=== PATIENT | male | born 1980 | race Two or more races ===

== ENCOUNTER → 2024-01-14 07:56 | Outpatient (REF) | payer OTHER, SELFPAY | LOC: HWRAD 07:56 | PROVIDERS: ATTENDING PHYSICIAN Physician Assistant Medical | DX: R10.13 Epigastric pain (principal) | CPT/HCPCS: 76700 ==

== ENCOUNTER 2024-02-17 06:30 | Day surgery (SDC) | payer OTHER, SELFPAY ==
[2024-02-17] VITALS (9 sets, daily range): BP systolic 115–151; BP diastolic 67–91; BMI 27.0
[2024-02-17] MEDS: NORMOSOL-R 1000 IV (09:49)
[2024-02-17] MEDS: TYLENOL 1000 MG PO (09:50)
--- NOTE | 2024-02-17 12:37 | W.SUR.PREOP ---
Pre-Operative Surgical Note
-
I have examined this patient prior to the performance of the scheduled procedure.
The patient's condition is unchanged from the time of the current History and
Physical and the patient is able to undergo the scheduled procedure.
--- NOTE | 2024-02-17 12:37 | W.IMMPOSTOP ---
Surgical Immed Post Op Note
-
Primary Surgeon: Channing Liao MD
Assisting Surgeon: None
Pre-op Diagnosis: Biliary colic
Post-op Diagnosis: Biliary colic, umbilical hernia
Procedure Performed:
1. Laparoscopic cholecystectomy with cholangiogram
Anesthesia Type: General
Specimen / Cultures: Gallbladder and contents
Estimated Blood Loss: 7 cc
Complications: None
Operative Findings: Small 1 cm umbilical hernia, reduced and uses our 12 mm port site. Fairly elongated gallbladder with palpable large stones. A critical view of safety was obtained. A large posterior cystic artery coming off of the right
hepatic was identified and taken flush with the right hepatic which was preserved. There was some bleeding from a small branch in this area which was controlled with a 0 PDS Endoloop. Fairly diminutive anterior cystic artery was identified as well
which was clipped with a 5 mm clip rn renal. Cholangiogram was performed which confirmed her anatomy and free flow of contrast into the duodenum without filling defects. Umbilical defect had to be enlarged to facilitate removal of the gallbladder
due to the large stone.
--- NOTE | 2024-02-17 12:40 | OR.RPT ---
Operative Report
Operative Report
Patient Name: Gareth Rodriguez
: 1980
Date of Operation: 02/17/2024
Preoperative Diagnosis: Symptomatic Cholelithiasis
Postoperative Diagnosis: Symptomatic cholelithiasis, umbilical hernia
Procedure(s):
Laparoscopic Cholecystectomy with Cholangiogram
Surgeon(s):
Dr. Liao
Front Office Help(s):
SUMA Sanchez
Anesthesia: General
Estimated Blood Loss: 7 cc
Urine Output: None
Drains/Lines/Implants: None
Specimens:
1. Gallbladder and contents
HPI/Surgical Indications:
This is a 44-year-old male who presents with abdominal pain. Exam, labs and imaging are consistent with symptomatic cholelithiasis. Risks/Benefits/Alternatives were discussed at length, and the patient agreed to proceed with surgery.
Operative Findings: Small 1 cm umbilical hernia, reduced and uses our 12 mm port site. Fairly elongated gallbladder with palpable large stones. Some adhesions noted to the anterior surface which were taken down with electrocautery. A critical
view of safety was obtained. A large posterior cystic artery coming off of the right hepatic was identified and taken flush with the right hepatic which was preserved. There was some bleeding from a small branch in this area which was controlled
with a 0 PDS Endoloop. Fairly diminutive anterior cystic artery was identified as well which was clipped with a 5 mm clip explosives mixer operator. Cholangiogram was performed which confirmed her anatomy and free flow of contrast into the duodenum without filling
defects. Umbilical defect had to be enlarged to facilitate removal of the gallbladder due to the large stone.
Procedure Description:
The patient was brought to the Operating Room and placed in the supine position. IV antibiotics were infused and sequential compression devices were confirmed to be on. Following uneventful induction of general endotracheal anesthesia, an
orogastric tube was placed. The abdomen was prepped and draped in the usual sterile fashion. The abdomen was entered using an infraumbilical open Justin technique. We did encounter a small umbilical hernia which we used to gain access to the
abdomen. Pneumoperitoneum to 15 mmHg pressure was obtained without difficulty and we confirmed that no injury had occurred during our entry. The patient was positioned in reverse trendelenberg and rotated with the right side up slightly. Three (3)
5mm trocars were then placed along the right subcostal margin. A locking grasping forceps was placed on the fundus of the gallbladder where it was then retracted cephalad and to the right. There were some adhesions to the anterior surface of the
gallbladder which were lysed with electrocautery. In addition segment 3 of the liver was fairly enlarged and covered up our critical area of dissection which were required additional time to manipulate each instrument exchange safely through our
right hand/epigastric port. Using appropriate grasping instruments, the peritoneum overlying the triangle of Calot was incised. The cystic duct/gallbladder junction was identified, dissected circumferentially. A large posterior cystic artery was
identified medially and posteriorly and could be seen joining the right hepatic artery. This was dissected out and isolated. We continued our dissection superiorly exposing the lower one third of the cystic plate and then inferiorly to better
delineate the strong structures in the triangle of Calot. A diminutive anterior cystic artery was identified and ligated with two 5 mm titanium clips. The cystic duct was also identified and ligated proximally with a single 5 mm titanium clip. The
posterior cystic artery was ligated with two 5 mm titanium clips proximally and 1 distally. The artery was divided but noted to have some small bleeding vessel that was not fully controlled with a clip. This was reinforced with a 0 PDS Endoloop
taking care not to kink or alter the main right hepatic artery. We then performed an intraoperative cholangiogram performed using fluoroscopy, which showed good flow of dye into the duodenum. There were no intra- or extrahepatic bile duct filling
defects. The biliary anatomy appeared normal. Following completion of the cholangiogram, the catheter was removed. Two clips were then placed proximally on the cystic duct and the duct divided. The remaining soft tissue attachments of the
gallbladder to the liver bed were then divided using electrocautery. There was no spillage of bile or stones. The gallbladder bed was inspected and excellent hemostasis was obtained. The gallbladder was extracted through the 12 mm trocar site
using an endocatch bag. The site had to be enlarged slightly to accommodate removal of the gallbladder. The abdomen was again irrigated and excellent hemostasis was assured. All remaining trocars were then removed and the pneumoperitoneum was
evacuated. The 12 mm trocar site was closed using a figure of 8 of 0 PDS. All trocar sites were closed at the skin level using 4-0 Monocryl followed by Dermabond. Overall, the patient tolerated the procedure well and was taken to the Recovery
Room postoperatively in stable condition.
I was the attending physician and performed the procedure with assistance from the PA student above. I was present for all portions of the case
Channing Liao MD
[2024-02-17] MEDS: SUBLIMAZE 50 MCG IV (13:08)
--- NOTE | 2024-02-17 13:50 | PTCARENOTE ---
1345- report given to Mary SPICER, pt. transferred to [facility]
[2024-02-17] MEDS: ROXICODONE 5 MG PO (14:18)
== END 2024-02-17 14:39 | disposition home or self-care (01) ==
LOC: SDS 06:30
PROVIDERS: ATTENDING PHYSICIAN Surgery
DX: K80.10 Calculus of gallbladder with chronic cholecystitis without obstruction (principal); R59.0 Localized enlarged lymph nodes; K42.9 Umbilical hernia without obstruction or gangrene; K66.0 Peritoneal adhesions (postprocedural) (postinfection)
CPT/HCPCS: 47563; 49591; 88304; 74300; 76000